=== PATIENT | female | born 1975 | race Two or more races ===

== ENCOUNTER 2025-06-29 22:00 | Emergency (ER) | payer OTHER ==
[~2025-06-29] VITALS: Ht 157.5 cm; Wt 81.2 kg
[2025-06-29 22:16] VITALS: BP 180/99; TEMP 98.4
[2025-06-29] MEDS ORDERED: AMOX500T2 PO (23:20)
[2025-06-29 23:26] VITALS: O2SAT 99
[2025-06-30] MEDS ORDERED: AMOX500T2 PO (15:17)
== END 2025-06-29 23:26 | disposition home or self-care (01) ==
LOC: ER 22:04
DX: K08.89 Other specified disorders of teeth and supporting structures (principal); I10 Essential (primary) hypertension; Z60.2 Problems related to living alone

== ENCOUNTER 2025-08-17 01:22 | Emergency (ER) | payer OTHER ==
[~2025-08-17] VITALS: Ht 154.9 cm; Wt 67.1 kg
[~2025-08-17 01:22] MED LIST: AMOX500T2 PO
[2025-08-17] MEDS ORDERED: LORAZEPAM 0.5 MG TABLET ONE (02:24)
[2025-08-17] MEDS: LORAZEPAM 0.5 MG TABLET PO ONE (02:28)
[2025-08-17 02:39] LABS: PLATELET COUNT (AUTO) 177 K/uL (150-450); RED BLOOD CELL COUNT(AUTO) 4.55 MIL/uL (4.0-5.2); RED CELL DISTRIBUTION WIDTH 15.3 % (11.5-15.0); WHITE BLOOD COUNT (AUTO) 7.7 K/uL (4.3-11.0)
[2025-08-17 02:46] LABS: CALCIUM, SERUM 9.4 mg/dL (8.5-10.1); CREATININE 0.6 mg/dL (0.6-1.3); SODIUM SERUM 143.0 mmol/L (136-145); UREA NITROGEN, BLOOD 13.0 mg/dL (7-18)
[2025-08-17 03:13] VITALS: BP 130/80; TEMP 98; O2SAT 99
[2025-08-17 03:32] LABS: LYMPHOCYTES % (MANUAL) 58 % (16-48); MONOCYTES % (MANUAL) 5 % (0-11.0); NEUTROPHILS % (MANUAL) 37 (42-76); PLATELET ESTIMATE ADEQUATE
== END 2025-08-17 03:14 | disposition home or self-care (01) ==
LOC: ER 01:25
DX: F41.1 Generalized anxiety disorder (principal); I10 Essential (primary) hypertension; F43.0 Acute stress reaction; Z60.2 Problems related to living alone
CPT/HCPCS: 36415; 80048-TC; 85027-TC